=== PATIENT | female | born 1940 | race Caucasian/White ===

== ENCOUNTER 2017-01-02 14:14 | Outpatient (CLI) | payer OTHER ==
[2017-01-02 14:46] LABS: BASOPHILS % 1.4 (0.0-1.5); EOSINOPHILS % 2.7 % (0.0-6.8); MEAN CORPUSCULAR HEMOGLOBIN 28.5 pg (28.0-34.0); MEAN CORPUSCULAR VOLUME 87.9 fl (80.0-100.0); MONOCYTES % 5.9 % (0.0-11.0); NEUTROPHILS # 5.5 # k/uL (1.4-7.7)
[2017-01-02 15:38] LABS: eGFR (African) > 60; eGFR (Non-African) > 60
== END 2017-01-02 14:15 ==
LOC: LAB 14:14
PROVIDERS: ATTEND Physician Assistant
DX: D69.2 Other nonthrombocytopenic purpura (principal)
CPT/HCPCS: 36415; 80053; 85025

== ENCOUNTER 2017-09-08 10:51 | Outpatient (CLI) | payer OTHER | END 2017-09-08 10:52 | LOC: RAD 10:51 | PROVIDERS: ATTEND Physician Assistant | DX: Z13.820 Encounter for screening for osteoporosis (principal) | CPT/HCPCS: 77080 ==

== ENCOUNTER 2018-02-02 10:39 | Outpatient (CLI) | payer OTHER ==
[2018-02-02 11:20] LABS: BASOPHILS % 1.7 (0.0-1.5); EOSINOPHILS % 2.8 % (0.0-6.8); MEAN CORPUSCULAR VOLUME 91.5 fl (80.0-100.0); MONOCYTES % 5.4 % (0.0-11.0); NEUTROPHILS # 4.1 # k/uL (1.4-7.7)
[2018-02-02 11:42] LABS: eGFR (African) > 60; eGFR (Non-African) > 60
--- NOTE | 2018-02-02 18:23 | Diagnostic Imaging Report ---
HUBER VAZQUEZ [facility] [address] [facility].[address] [address] Report Submission Date: Feb 02, 2018 1:04:58 PM CDT Patient Study Name: RONY BARNES Date: Feb 02, 2018 10:57:10 AM CDT Modality Type: DX Gender: F Description: SPINE : 40 Institution: [facility] Physician: HUBER VAZQUEZ Lumbar spine History: Back pain AP, lateral and bilateral oblique projections of the lumbar spine demonstrate moderate levoscoliosis. There is no spondylolisthesis or spondylolysis. Vertebral body height and intervertebral disc space height is maintained. There is multilevel facet arthropathy, most pronounced at L4/5 and L5/S1. Aortic atherosclerosis is present. Impression: Moderate levoscoliosis. Multilevel facet arthropathy without spondylolisthesis. Electronically signed on Feb 02, 2018 1:04:58 PM CDT by: Marga GOLDEN
== END 2018-02-02 10:44 ==
LOC: LAB 10:39
PROVIDERS: ATTEND Physician Assistant
DX: M54.5 Low back pain (principal); M25.473 Effusion, unspecified ankle; R10.11 Right upper quadrant pain
CPT/HCPCS: 36415; 72110; 80053; 85025

== ENCOUNTER 2019-04-08 12:10 | Outpatient (CLI) | payer OTHER ==
[2019-04-08 12:39] LABS: BASOPHILS % 0.5 % (0.0-1.5); NEUTROPHILS # 4.8 # k/uL (1.4-7.7)
[2019-04-08 13:28] LABS: eGFR (Non-African) > 60
== END 2019-04-08 12:12 ==
LOC: RT 12:10
PROVIDERS: ATTEND Family Medicine
DX: R55 Syncope and collapse (principal)
CPT/HCPCS: 36415; 80053; 85025; 93005

== ENCOUNTER 2019-04-25 14:15 | Observation (INO) | payer OTHER ==
[2019-04-25] MEDS ORDERED: NITROGLYCERIN 0.4 MG TAB.SUBL SL ONE (14:34)
[2019-04-25] MEDS ORDERED: ASPIRIN 81 MG CHEW TAB ONE (14:34)
[2019-04-25] MEDS ORDERED: NORMAL SALINE 500 ML IV.SOLN IV ONE (15:52)
[2019-04-25] MEDS ORDERED: rOPINIRole HCL 1 MG TABLET ONE (21:18)
[2019-04-26] MEDS ORDERED: PARoxetine HCL 10 MG TABLET PO ONE (08:59)
[2019-04-26] MEDS ORDERED: rOPINIRole HCL 1 MG TABLET ONE (09:00)
[2019-05-07 08:53] LABS: BASOPHILS % 0.6 % (0.0-1.5); NEUTROPHILS # 4.5 # k/uL (1.4-7.7)
[2019-05-07 08:54] LABS: eGFR (Non-African) > 60
--- NOTE | 2019-05-15 10:12 | Diagnostic Imaging Report ---
ROSEMARIE MOYA [facility] [address] [facility].[address] [address] Report Submission Date: Apr 25, 2019 2:42:28 PM CDT Patient Study Name: RONY BARNES Date: Apr 25, 2019 2:16:13 PM CDT Modality Type: DX Gender: F Description: CHEST 1VIEW : 40 Institution: [facility] Physician: ROSEMARIE MOYA Examination: Portable chest History: Evaluate lungs Comparison exam: None available. Findings: Single view of the chest demonstrates a normal cardiac and mediastinal silhouette. Mildly tortuous aorta. Lung espinoza without focal infiltrate. No blunting of the costophrenic margins. Osseous structures are appropriate for age. Impression: No acute pulmonary process. Electronically signed on Apr 25, 2019 2:42:28 PM CDT by: Bari GOLDEN
--- NOTE | 2019-05-15 11:00 | Diagnostic Imaging Report ---
TIA SCHILLING [facility] [address] [facility].[address] [address] Report Submission Date: Apr 26, 2019 12:43:52 PM CDT Patient Study Name: RONY BARNES Date: Apr 26, 2019 11:14:40 AM CDT Modality Type: US Gender: F Description: CAROTID : 40 Institution: [facility] Physician: TIA SCHILLING Exam: Bilateral carotid Doppler study. History: Chest pain. Doppler interrogation and color Doppler imaging of the carotid systems bilaterally are submitted. On the right side some intimal thickening and plaque is identified. The internal carotid artery peak systolic velocity measurements is 56 centimeters/second. The internal carotid artery common carotid artery ratio is 0.56. Doppler waveforms are normal configuration. Color Doppler imaging reveals no turbinates of flow. Flow is antegrade in the vertebral artery. On the left side intimal thickening and plaque is identified. The internal carotid artery peak systolic velocity measurements is 74 centimeters/second. The internal carotid artery common carotid artery ratio is 0.9. Doppler waveforms are normal configuration. Color Doppler imaging reveals no turbinates of flow. Flow is antegrade in vertebral artery. Impression: No hemodynamically significant stenosis. Electronically signed on Apr 26, 2019 12:43:52 PM CDT by: Asad GOLDEN
== END 2019-04-26 13:30 | disposition home or self-care (01) ==
LOC: ED 14:15 → SOUTH 16:00
PROVIDERS: ADMIT Emergency Medicine; ATTEND Emergency Medicine
DX: R07.9 Chest pain, unspecified (principal)
CPT/HCPCS: 71045; 80053; 82550; 82553; 83880; 84484; 85025; 93005; 93880; 99218; 99282; G0378; J7060; S1016

== ENCOUNTER 2019-07-11 11:26 | Outpatient (CLI) | payer OTHER ==
--- NOTE | 2019-07-11 13:41 | Diagnostic Imaging Report ---
PATIENT MR#: [id number] PATIENT PATIENT NAME: RONY BARNES DATE OF : 1940 REFERRING PHYSICIAN: Jinny Dudley EXAM DATE: 07/11/2019 ACCESSION NUMBER: [id number] EXAM DESCRIPTION: FOOT 3 VIEWS OR MORE CLINICAL HISTORY: SORE FOOT FOR ABOUT X1 MONTH, NO KNOWN INJURY, PRIMARILY LATERAL SIDE PAIN. COMPARISON: No study for comparison is available at the time of interpretation. TECHNIQUE: DX left foot, 3 views Osseous structures: The osseous structures are normal with no evidence of fracture or dislocation. Th e 1st metatarsophalangeal angle measures 24? (normal < 15?). 1st-2nd intermetatarsal angle measures 15? (no rmal < 9?). There is osseous prominence of the medial 1st metatarsal head. Joint spaces: The bones are well aligned. There is degenerative articular narrowing of the 1st metata rsophalangeal joint, with subcortical cyst formation. There is mild articular narrowing of the 5th tarsometatarsal joint. Soft tissues: There is a minute calcification within the soft tissues subjacent to the 5th metatarsal head. IMPRESSION: 1. Hallux valgus deformity with degenerative articular changes of the 1st metatarsophalangeal joint. 2. 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 3. No acute fracture. Read by: Dr. Gilbert Mcgowan Transcribed by: Gilbert Mcgowan Transcribed Date: 07/11/2019 1:40:13 PM Electronically signed by: Dr. Gilbert Mcgowan Date signed: 07/11/2019 1:40:13 PM
== END 2019-07-11 11:31 ==
LOC: LAB 11:26
PROVIDERS: ATTEND Nurse Practitioner Family
DX: M79.672 Pain in left foot (principal)
CPT/HCPCS: 36415; 73630; 84550